=== PATIENT | female | born 1965 | race Caucasian/White ===

== ENCOUNTER 2016-10-25 14:22 | Outpatient (CLI) | payer SELFPAY | END 2016-10-25 14:23 | disposition home or self-care (01) | LOC: HPCALD 14:22 | PROVIDERS: ATTEND Physician Assistant | DX: Z01.419 Encounter for gynecological examination (general) (routine) without abnormal findings (principal) | CPT/HCPCS: 87480; 87510; 87660 ==

== ENCOUNTER 2022-03-26 11:28 | Emergency (ER) | payer SELFPAY | END 2022-03-26 11:59 | disposition home or self-care (01) | LOC: BURERS 11:28 | DX: M77.8 Other enthesopathies, not elsewhere classified (principal) | CPT/HCPCS: 99283 ==